=== PATIENT | female | born 1990 | race Caucasian/White ===

== ENCOUNTER 2020-06-24 16:59 | Emergency (ER) | payer MEDICAID ==
[~2020-06-24] VITALS: Ht 165.1 cm; Wt 65.8 kg
[~2020-06-24 16:59] MED LIST: ADDERALL 30 MG30 MG PO; KEFLEX250 MG/5 M PO
[2020-06-24] MEDS ORDERED: LEXAPRO 10 MG T10 M2 PO (17:10)
[2020-06-24] MEDS ORDERED: APLENZIN174 MG (17:10)
[2020-06-24] MEDS ORDERED: KEFLEX250 MG/5 M PO (17:25)
[2020-06-24 17:56] VITALS: BP 142/80
== END 2020-06-24 17:57 | disposition home or self-care (01) ==
LOC: M.ERS 16:59
DX: S61.211A Laceration without foreign body of left index finger without damage to nail, initial encounter (principal); F90.9 Attention-deficit hyperactivity disorder, unspecified type; Z98.890 Other specified postprocedural states; Z79.899 Other long term (current) drug therapy; W27.8XXA Contact with other nonpowered hand tool, initial encounter; Y93.89 Activity, other specified; Y92.89 Other specified places as the place of occurrence of the external cause; Y99.8 Other external cause status